=== PATIENT | male | born 1940 | race Caucasian/White ===

== ENCOUNTER → 2017-05-21 | Outpatient (CLI) | payer MEDICARE, OTHER ==
[~2017-05-21] MED LIST: AMLODIPINE PO; APIDRA SOL100 UNIT/1 SUBQ; ASPIRIN81 M2 PO; ATACAND16 MG PO; ATACAND32 MG PO; ATORVASTATIN CA40 MG PO; AUGMENTIN 875-1 EACH PO; HYDROCHLOROTHIA25 M2 PO; HYDROCHLOROTHIA50 MG PO; HYDROCODONE-APA1 TA1 PO; IMDUR 30 MG TAB30 M1 PO; IMODIUM MULTI-1 EACH PO; IPRAT-ALBUT 0.5-3 ML INH; LANTUS SUBQ; LANTUS100 UNIT/M SUBQ; LEVOTHYROXIN0.075 MG PO; LEVOTHYROXIN0.112 M1 PO; LEVOTHYROXINE 0.1 MG PO; LOPRESSOR 12.12.5 MG PO; MIDAMOR 5MG TABL5 M1 PO; MOBIC15 MG PO; NITROGLYCERIN0.4 MG SUBLING; NORVASC5 MG PO; NOVOLOG100 UNIT/1 SUBQ; PLAVIX 75 MG TA75 M1 PO; POTASSIUM20 PO; TOPROL XL25 MG PO; TOUJEO SOL300 UNIT/1 SUBQ; VITAMIN D1000 UNI2 PO; VITAMIN E400 UNIT PO; XANAX 0.25 MG0.25 MG PO; XANAX 0.5 MG0.5 MG PO
[2017-05-21 07:49] LABS: HEMATOCRIT 49.6 % (42.0-52.0); HEMOGLOBIN 16.9 gm/dL (14.0-18.0); MCHC 34.1 g/dL (28.0-37.0); MCV 90.9 fL (80.0-100.0); MPV 9.3 fl. (7.2-11.1); RBC 5.45 mil/uL (4.50-6.00); RDW-CV 14.4 % (10.5-14.5); WBC 7.6 thou/uL (4.0-11.0)
[2017-05-21 08:05] LABS: ALBUMIN 3.1 g/dL (3.4-5.0); ALKALINE PHOSPHATASE 83 U/L (46-116); ANION GAP 9 mmol/L (7-16); BUN 36 mg/dL (7-18); CALCIUM 8.9 mg/dL (8.5-10.1); CHLORIDE 110 mmol/L (98-107); CHOLESTEROL 210 mg/dL (<200); CO2 27 mmol/L (21-32); GLUCOSE 67 mg/dL (70-99); HDL CHOLESTEROL 46 mg/dL (>40); LDL CHOLESTEROL 135 mg/dL (<100); POTASSIUM 3.6 mmol/L (3.5-5.1); SERUM ASSESSMENT Clear; SGOT 19 U/L (15-37); SGPT 20 U/L (30-65); SODIUM 146 mmol/L (136-145); TC:HDL 4.6 Ratio (Not establshd); TOTAL BILIRUBIN 0.7 mg/dL (<0.1-1.0); TOTAL PROTEIN 6.8 g/dL (6.4-8.2); TRIGLYCERIDE 146 mg/dL (<150); VLDL 29 mg/dL (<40)
== END ==
LOC: M.LAB 07:30
DX: I12.9 Hypertensive chronic kidney disease with stage 1 through stage 4 chronic kidney disease, or unspecified chronic kidney disease (principal); E78.5 Hyperlipidemia, unspecified; E03.9 Hypothyroidism, unspecified; I25.119 Atherosclerotic heart disease of native coronary artery with unspecified angina pectoris; I73.9 Peripheral vascular disease, unspecified; N18.3 Chronic kidney disease, stage 3 (moderate); E11.65 Type 2 diabetes mellitus with hyperglycemia; I25.2 Old myocardial infarction; Z90.49 Acquired absence of other specified parts of digestive tract; Z85.048 Personal history of other malignant neoplasm of rectum, rectosigmoid junction, and anus; Z98.890 Other specified postprocedural states

== ENCOUNTER → 2017-12-24 | Outpatient (CLI) | payer MEDICARE, OTHER ==
[2017-12-24 11:58] LABS: HEMATOCRIT 44.3 % (42.0-52.0); MCH 30.8 pg (26.0-34.0); MCV 90.7 fL (80.0-100.0); MPV 9.2 fl. (7.2-11.1); RBC 4.88 mil/uL (4.50-6.00); RDW-CV 13.6 % (10.5-14.5)
[2017-12-24 12:15] LABS: ALBUMIN 2.3 g/dL (3.4-5.0); ALKALINE PHOSPHATASE 78 U/L (46-116); ANION GAP 9 mmol/L (7-16); BUN 36 mg/dL (7-18); CALCIUM 7.9 mg/dL (8.5-10.1); CHLORIDE 104 mmol/L (98-107); CHOLESTEROL 174 mg/dL (<200); CO2 28 mmol/L (21-32); CREATININE 2.4 mg/dL (0.6-1.3); GLUCOSE 309 mg/dL (70-99); HDL CHOLESTEROL 37 mg/dL (>40); LDL CHOLESTEROL 88 mg/dL (<100); POTASSIUM 3.3 mmol/L (3.5-5.1); SERUM ASSESSMENT Clear; SGOT 16 U/L (15-37); SGPT 12 U/L (30-65); SODIUM 141 mmol/L (136-145); TC:HDL 4.7 Ratio (Not establshd); TOTAL BILIRUBIN 0.4 mg/dL (<0.1-1.0); TOTAL PROTEIN 5.9 g/dL (6.4-8.2); TRIGLYCERIDE 247 mg/dL (<150); VLDL 49 mg/dL (<40)
[2017-12-25 04:06] LABS: GLYCOHEMOGLOBIN (HGB A1C) 8.7 % (4.8-5.6)
== END ==
LOC: M.LAB 11:35
PROVIDERS: Nurse Practitioner Family
DX: I10 Essential (primary) hypertension (principal); E03.9 Hypothyroidism, unspecified; E11.8 Type 2 diabetes mellitus with unspecified complications; E78.5 Hyperlipidemia, unspecified

== ENCOUNTER 2018-02-02 02:30 | Inpatient (IN) | payer MEDICARE, OTHER ==
[2018-02-02] VITALS (7 sets, daily range): BP systolic 127–227; BP diastolic 76–97
[~2018-02-02] VITALS: Ht 152.4 cm; Wt 82.8 kg
[~2018-02-02 02:30] MED LIST changes: -AUGMENTIN 875-1 EACH PO; -IPRAT-ALBUT 0.5-3 ML INH; -POTASSIUM20 PO
[2018-02-02 03:18] LABS: ABSOLUTE BASOPHILS 0.1 thou/uL (0.0-0.2); ABSOLUTE EOSINOPHILS 0.1 thou/uL (0.0-0.7); ABSOLUTE LYMPHOCYTES 2.2 thou/uL (0.8-5.3); ABSOLUTE MONOCYTES 0.7 thou/uL (0.0-1.2); ABSOLUTE NEUTROPHILS 4.7 thou/uL (1.6-8.1); BASOPHILS 0.8 %; EOSINOPHILS 1.5 %; HEMATOCRIT 45.5 % (42.0-52.0); HEMOGLOBIN 15.3 gm/dL (14.0-18.0); LYMPHOCYTES 28.3 %; MCH 30.6 pg (26.0-34.0); MCHC 33.7 g/dL (28.0-37.0); MCV 90.8 fL (80.0-100.0); MPV 9.8 fl. (7.2-11.1); NUCLEATED RBCS 0 /100WBC; PLATELET COUNT* 163 thou/uL (150-400); POLYS 60.4 %; RBC 5.01 mil/uL (4.50-6.00); RDW-CV 13.4 % (10.5-14.5); WBC 7.8 thou/uL (4.0-11.0)
[2018-02-02 03:25] LABS: CALCIUM 8.8 mg/dL (8.5-10.1); CREATININE 2.3 mg/dL (0.6-1.3); POTASSIUM 3.9 mmol/L (3.5-5.1)
[2018-02-02 03:26] LABS: APTT 27.2 Seconds (25.0-31.3); INR 1.1; PROTIME 10.9 Seconds (9.20-11.50)
[2018-02-02 03:35] LABS: ALBUMIN 2.6 g/dL (3.4-5.0); MAGNESIUM 1.7 mg/dL (1.8-2.4); TOTAL BILIRUBIN 0.6 mg/dL (<0.1-1.0); TOTAL PROTEIN 6.2 g/dL (6.4-8.2); TROPONIN-I LEVEL 0.18 ng/mL (<0.06)
--- NOTE | 2018-02-02 17:53 | 2DMMODE ---
[place] [address] 2 D/M-MODE ECHOCARDIOGRAM Name: PATSY WALLACE Room: [address] IN [facility]#: [id number] Admission: 02/02/18 Attend Phys: Savannah Alvarez, Discharge: Date of : 36 Date of Service: 02/02/18 1752 Report #: [id number] THIS REPORT FOR: //name// APPROVED REPORT Study performed: 02/02/2018 14:54:41 EXAM: Comprehensive 2D, Doppler, and color-flow Echocardiogram Patient Location: In-Patient Room #: [facility] Status: routine BSA: 1.92 HR: 103 bpm BP: 163/77 mmHg Rhythm: NSR Other Information Study Quality: Good Indications CAD Chest Pain 2D Dimensions IVSd: 13.77 (7-11mm) LVOT Diam: 20.47 (18-24mm) LVDd: 53.92 mm PWd: 9.42 (7-11mm) Ascending Ao: 32.64 (22-36mm) LVDs: 47.06 (25-40mm) Aortic Root: 33.64 mm Volumes Left Atrial Volume (Systole) LA ESV Index: 39.80 mL/m2 Aortic Valve AoV Peak Tl.: 1.41 m/s AO Peak Gr.: 7.99 mmHg LVOT Max P.75 mmHg AO Mean Gr.: 4.96 mmHg LVOT Mean P.93 mmHg LVOT Max V: 0.97 m/s AO V2 VTI: 25.40 cm LVOT Mean V: 0.64 m/s DANIEL (VTI): 2.31 cm2 LVOT V1 VTI: 17.82 cm Mitral Valve MV Decel. Time: 110.49 ms MV PHT: 32.04 [place] [address] 2 D/M-MODE ECHOCARDIOGRAM Name: PATSY WALLACE Room: [address] IN [facility]#: [id number] Admission: 02/02/18 Attend Phys: Savannah Alvarez, Discharge: Date of : 36 Date of Service: 02/02/18 1752 Report #: [id number] MVA (PHT): 6.87 cm2 Pulmonary Valve PV Peak Tl.: 1.28 m/s PV Peak Gr.: 6.59 mmHg Left Ventricle The left ventricle is normal size. Regional wall motion abnormalities are noted with distal septal and apical hypokinesis. There is normal left ventricular wall thickness. Left ventricular systolic function is mildly decreased. LVEF is 45%. The left ventricular diastolic function is normal. Right Ventricle The right ventricle is normal size. The right ventricular systolic function is normal. Atria Left atrium is mildly dilated. The right atrium size is normal. Aortic Valve Mild aortic valve sclerosis. No aortic regurgitation is present. There is no aortic valvular stenosis. Mitral Valve Mild mitral annular calcification. Mild mitral regurgitation. No evidence of mitral valve stenosis. Tricuspid Valve The tricuspid valve is normal in structure. Unable to assess PA pressure. Trace tricuspid regurgitation. Pulmonic Valve The pulmonary valve is normal in structure. There is no pulmonic valvular regurgitation. Great Vessels The aortic root is normal in size. IVC is normal in size and collapses >50% with inspiration. Pericardium There is no pericardial effusion. <Conclusion> The left ventricle is normal size. Left ventricular systolic [place] [address] 2 D/M-MODE ECHOCARDIOGRAM Name: PATSY WALLACE Room: [address] IN [facility].#: [id number] Admission: 02/02/18 Attend Phys: Savannah Alvarez, Discharge: Date of : 36 Date of Service: 02/02/18 1752 Report #: [id number] LVEF is 45%. The right ventricle is normal size. Left atrium is mildly dilated. Mild aortic valve sclerosis. No aortic regurgitation is present. There is no aortic valvular stenosis. Mild mitral annular calcification. Mild mitral regurgitation. No evidence of mitral valve stenosis. The tricuspid valve is normal in structure. IVC is normal in size and collapses >50% with inspiration. There is no pericardial effusion. Regional wall motion abnormalities are noted with distal septal and apical hypokinesis. <ELECTRONICALLY SIGNED> By: Ross Woods MD, FACC 02/02/181751 51 51 Ross Woods MD, FACC /INF
[2018-02-03] VITALS: BP 167/65
[2018-02-03 05:07] VITALS: BP 149/61
[2018-02-03 05:41] LABS: HEMATOCRIT 42.9 % (42.0-52.0); HEMOGLOBIN 14.5 gm/dL (14.0-18.0); MCH 30.8 pg (26.0-34.0); MCHC 33.8 g/dL (28.0-37.0); MCV 91.4 fL (80.0-100.0); MPV 10.3 fl. (7.2-11.1); NUCLEATED RBCS 0 /100WBC; PLATELET COUNT* 159 thou/uL (150-400); RDW-CV 13.6 % (10.5-14.5); WBC 13.2 thou/uL (4.0-11.0)
[2018-02-03 05:46] LABS: CALCIUM 9.2 mg/dL (8.5-10.1); CREATININE 2.8 mg/dL (0.6-1.3); POTASSIUM 4.2 mmol/L (3.5-5.1)
[2018-02-03 06:40] LABS: ABSOLUTE LYMPHOCYTES 0.9 thou/uL (0.8-5.3); ABSOLUTE MONOCYTES 0.3 thou/uL (0.0-1.2); ANISOCYTOSIS 1+; PLATELET ESTIMATE ADEQUATE; POIKILOCYTOSIS 1+
--- NOTE | 2018-02-03 07:37 | CON ---
[facility] [address] [place] [address] CONSULTATION Name: PATSY WALLACE Room: [address] IN .R.#: [id number] Admission: 02/02/18 Attend Phys: Savannah Alvarez MD Discharge: Date of : 36 Report #: [id number] THIS REPORT FOR: //name// CC: Savannah Garsia DATE OF SERVICE: 02/02/2018 REASON FOR CONSULTATION: Hemoptysis. DISCUSSION: The patient is a pleasant 77-year-old man who has a history of coronary artery disease, peripheral vascular disease. He notes that yesterday evening, he had fallen asleep, had a sensation of something in his throat/mouth, coughed it out and it was bright red blood. Prior to this, he denied having much in the way of any cough. He is chronically short of breath, can only walk short distances. He has intermittently had some chest pain as well. He was seen in the Emergency Department yesterday. A chest x-ray was done, which was fairly unremarkable. He did have a CT scan done of his chest. No contrast was used. Emphysematous changes were noted. No masses. There is evidence of old calcified granuloma disease. Does not appear to have any significant adenopathy. Here in the hospital, he has remained on room air, low grade temperature to 99.1. Earlier this morning, did have the onset to have significant chest discomfort. He notes he felt like he had a heavy weight sitting on his chest. It has improved at the time I was seeing him. He did have some additional nonmassive hemoptysis this morning as well. He is just a fair historian. His is able to help. He has a known history of coronary artery disease. He has had stents placed in the past. He states he does continue to follow up regularly with a relationship advisor; however, he and his cannot tell me who they are. He states he has chronic irregular heartbeat. He is on Plavix and aspirin chronically and has been on this for the last several years. He states he was told that he had issues with the valve. Also that his heart was not pumping effectively. He has not had any vomiting. He has had a change in his appetite. He has lost substantial amount of weight since 03/2017. He is a remote smoker, quitting back in 1989. He notes when he went into the [facility] years ago, he had additional evaluation done. Subsequent was told that he has a scar on his lungs. Question of tuberculosis was raised at that time. However, he is not aware of any other type of testing that has ever been done in the interim. No family members had TB. He has no history of thromboembolic disease. He does have a history of skin cancer removed from his left ear. He has a history of colon cancer. He had his initial resection with colostomy, which was done in 2005. He had radiation and chemotherapy at that time as well. In 2014, he did have additional colon resection for another adenocarcinoma. He also has a history of coronary artery disease. He has had stents placed. He is [address] [place] [address] CONSULTATION Name: PATSY WALLACE Room: [address] IN [facility].#: [id number] Admission: 02/02/18 Attend Phys: Savannah Alvarez MD Discharge: Date of : 38 Report #: [id number] chronically on Plavix and aspirin. PAST MEDICAL HISTORY: As noted above in regards to cardiac history and his colon cancer. He has also had a left ear skin cancer removed. He has had some type of nasal surgery, which stopped have his snoring. In 2006, he also had a right thyroid mass that was removed. He has also had a mass in the superior mediastinum, which was resected and was found to be benign disease. He has had no recent colonoscopies. He denies having any EGDs. SOCIAL HISTORY: He is . Quit smoking in 1989. He had smoked up to 2 packs of cigarettes per day in the past. 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 Also, over 20 years in the [employer]. He had been in multiple parts of the world. Had had also had malaria and typhoid fever. FAMILY HISTORY: Positive for peripheral vascular disease. REVIEW OF SYSTEMS: ROS was done. Note positives above. He is somewhat hard of hearing. He has had close to 50-pound weight loss. He gets short of breath with minimal exertion. Typically does not have much in the way of cough or wheezing at home. Intermittent chest pain as noted. He denies difficulty swallowing to me and on the other hand will note that he does not swallow well. His appetite has been poor. He denies any recent vomiting. He has not noted any blood in his stools or black stools. He still does have his colostomy. He has a known hernia abdominal wall. Denies any recent falls. PHYSICAL EXAMINATION: GENERAL APPEARANCE: A man who looks stated age. His is at the bedside. He is conversant. He does have some blood-stained tissues in the container at the bedside. No blood is noted in his mouth. HEENT: Sclerae nonicteric. NECK: Negative for adenopathy. No JVD is noted. HEART: Regular with periods of irregularity. No S3 is heard. There is a grade 1/6 systolic murmur. LUNGS: Sounds are clear. There is no wheezing or crackles heard. No chest wall abnormalities are noted. ABDOMEN: Soft. He does have a small hernia noted. Colostomy bag is noted as well. EXTREMITIES: Lower extremities negative for edema. Skin is warm and dry. He has no clubbing. NEUROLOGIC: Alert and oriented x 3. LABORATORY AND X-RAY FINDINGS: BUN is 41, creatinine of 2.3, potassium 3.9 with bicarbonate of 20. Troponin early this morning was 0.18, down to 0.08 this morning. Albumin 2.6, total protein 6.2. ProBNP 2358. White blood cell count 7800, hemoglobin 15.3, hematocrit of 45.5. Platelets are normal. INR is 1.1. Blood cultures have been sent. [place] [address] CONSULTATION Name: PATSY WALLACE Room: [address]#: [id number] Admission: 02/02/18 Attend Phys: Savannah Alvarez MD Discharge: Date of : 38 Report #: [id number] chest shows some emphysematous changes. No definite masses. Larger airways do appear open and patent. Last echocardiogram done at this facility was in 2014. At that time, his EF was 50-55%. RV was normal. He had mild mitral regurgitation. He had a stress test done in 2016. At that time, EF was 42%. IMPRESSION: 1. Non-massive hemoptysis. It is actually not clear where the source of the bleeding is from. His description is little variable. Certainly may have expectorated it. He also describes of having a sense of secretions or mucus in the back of his throat and when he spit it out it was bloody. It could be upper airway source or even GI. Has had some dysphagia. There are no worrisome lesions noted on the CT chest. By history, he does not have a significant bronchitis or pneumonia. 2. History of colon cancer. Had resection with colostomy placement and chemoradiation in 2004. Additional surgery for colon cancer in 2014. 3. History of coronary artery disease, known ischemic cardiomyopathy. 4. Chronic kidney disease. 5. History of skin cancer, details not clear. 6. History of peripheral vascular disease. RECOMMENDATIONS: 1. Discussed with Dr. Quigley. He is already requested GI to evaluate. 2. If safe, would keep off the Plavix and aspirin at this time. 3. Agree with empiric antibiotics and steroids. We will decrease the dose of the steroids given his diabetes and elevated blood sugars. <ELECTRONICALLY SIGNED> By: Hazel Terry MD 02/03/18 0737 1129 [id number] Terry MD /nt
[2018-02-03 08:00] VITALS: BP 174/77
[2018-02-03 12:31] VITALS: BP 149/54
[2018-02-03 15:41] VITALS: BP 136/70
--- NOTE | 2018-02-03 16:59 | EKG ---
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 : 1940 Requested By: Raymond Gomes Order Number: [id number] MD: Ross Woods Measurements Intervals [place] Rate: 76 P: 34 [place]: 186 QRS: 28 QRSD: 104 T: 261 QT: 415 QTc: 467 Interpretive Statements Sinus arrhythmia Probable LVH with secondary repol abnrm Inferior infarct, age indeterminate Baseline wander in lead(s) V2 Compared to ECG 05/17/2015 09:41:52 Myocardial infarct finding now present T-wave abnormality no longer present Electronically Signed On 02-03-2018 16:59:04 CDT by Ross Woods [email or web address] <ELECTRONICALLY SIGNED> By: Ross Woods MD, FACC 02/03/18 1659 0243 0243 Ross Woods MD, FACC /EPI
--- NOTE | 2018-02-03 17:04 | EKG ---
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[facility] 1940 Requested By: Neymar Quigley Order Number: [id number] Edilberto MD: Ross Woods Measurements Intervals [place] Rate: 99 P: [place]: QRS: 3 QRSD: 103 T: 217 QT: 359 QTc: 461 Interpretive Statements Atrial fibrillation Ventricular premature complex Inferior infarct, age indeterminate Repol abnrm, consider ischemia Compared to ECG 05/17/2015 09:41:52 Ventricular premature complex(es) now present Myocardial infarct finding now present Early repolarization now present Possible ischemia now present Sinus rhythm no longer present Electronically Signed On 02-03-2018 17:03:48 CDT by Ross Woods [email or web address] <ELECTRONICALLY SIGNED> By: Ross Woods MD, FACC 02/03/18 1703 1044 1044 Ross Woods MD, FACC /EPI
--- NOTE | 2018-02-03 17:07 | EKG ---
[place] [address] ELECTROCARDIOGRAM REPORT Name: PATSY WALLACE Room: [address] ADM IN M.R.#: [id number] Admission: 02/02/18 Attend Phys: Savannah Alvarez MD Discharge: Date of : 38 Report #: [id number] THIS REPORT FOR: //name// 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 : 1940 Requested By: Ross Woods Order Number: [id number] Edilberto MD: Ross Woods Measurements Intervals [place] Rate: 111 P: 79 CT: 168 QRS: 11 QRSD: 110 T: 261 QT: 350 QTc: 476 Interpretive Statements Sinus tachycardia Incomplete left bundle branch block Inferior infarct, age indeterminate Compared to ECG 05/17/2015 09:41:52 Left bundle-branch block now present Myocardial infarct finding now present Sinus rate has increased Sinus arrhythmia no longer present Electronically Signed On 02-03-2018 17:07:33 CDT by Ross Woods [email or web address] <ELECTRONICALLY SIGNED> By: Ross Woods MD, FAC 02/03/18 1707 1346 1346 Ross Woods MD, [facility] /EPI
[2018-02-03 20:09] VITALS: BP 166/77
[2018-02-04] VITALS (7 sets, daily range): BP systolic 133–135; BP diastolic 57–75
[2018-02-04 05:13] LABS: ABSOLUTE LYMPHOCYTES 1.5 thou/uL (0.8-5.3); ABSOLUTE MONOCYTES 0.8 thou/uL (0.0-1.2); ABSOLUTE NEUTROPHILS 8.4 thou/uL (1.6-8.1); BASOPHILS 0.1 %; HEMATOCRIT 40.1 % (42.0-52.0); HEMOGLOBIN 13.5 gm/dL (14.0-18.0); LYMPHOCYTES 13.5 %; MCH 30.9 pg (26.0-34.0); MCHC 33.7 g/dL (28.0-37.0); MCV 91.7 fL (80.0-100.0); MONOCYTES 7.9 %; MPV 10.2 fl. (7.2-11.1); NUCLEATED RBCS 0 /100WBC; PLATELET COUNT* 130 thou/uL (150-400); POLYS 78.5 %; RBC 4.37 mil/uL (4.50-6.00); RDW-CV 13.8 % (10.5-14.5); WBC 10.7 thou/uL (4.0-11.0)
[2018-02-04 06:00] LABS: ALBUMIN 2.4 g/dL (3.4-5.0); CALCIUM 8.6 mg/dL (8.5-10.1); CREATININE 2.9 mg/dL (0.6-1.3); TOTAL BILIRUBIN 0.3 mg/dL (<0.1-1.0); TOTAL PROTEIN 5.1 g/dL (6.4-8.2)
--- NOTE | 2018-02-04 11:04 | EKG ---
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: : 1940 Requested By: Jair Meza Order Number: [id number] Reading MD: Ross Woods Measurements Intervals [place] Rate: 86 P: 23 [place]: 168 QRS: 6 QRSD: 104 T: 227 QT: 361 QTc: 432 Interpretive Statements Sinus rhythm Ventricular premature complex Inferior infarct, age indeterminat Baseline wander in lead(s) V2 Compared to ECG 02/02/2018 13:46:46 Ventricular premature complex(es) now present Sinus tachycardia no longer present Left bundle-branch block no longer present Myocardial infarct finding still present Electronically Signed On 02-04-2018 11:04:15 CDT by Ross Woods [email or web address] <ELECTRONICALLY SIGNED> By: Ross Woods MD, FACC 02/04/18 1104 41 2242 Ross Woods MD, FACC /EPI
[2018-02-04] MEDS ORDERED: AUGMENTIN 875-1 EACH PO (11:40)
[2018-02-04] MEDS ORDERED: IPRAT-ALBUT 0.5-3 ML INH (11:43)
--- NOTE | 2018-02-25 12:52 | CON ---
[facility] [address] [place] [address] CONSULTATION Name: PATSY WALLACE Room: [address] IN M.R.#: [id number] Admission: 02/02/18 Attend Phys: Savannah Alvarez MD Discharge: 02/04/18 Date of : 36 Report #: [id number] THIS REPORT FOR: //name// CC: Savannah Garsia DATE OF SERVICE: 02/02/2018 HISTORY OF PRESENT ILLNESS: This is a pleasant 77-year-old gentleman, with past medical history significant for coronary artery disease, colon cancer, status post resection, type 2 diabetes, rectal cancer, who is presenting with hemoptysis. The patient reports he was in his usual state of health yesterday evening when he coughed up. He assumed this was phlegm, but when he noticed, it was a large blood clot. The patient then asked his to bring him to the ER. The patient reports he is having some chest pain and difficulty breathing. He denies any significant abdominal pain, nausea, vomiting or hematemesis. The patient also denies any significant change in his bowel habits. His colostomy appears healthy without any significant changes in the recent past. The patient reports losing about 30 pounds in the last 6 months. PAST MEDICAL HISTORY: The patient has a history of COPD, coronary artery disease. He had tuberculosis as a child. He reports having hemorrhoidectomy in the 1970s. He had rectal cancer and colon cancer for which he underwent surgery. His surgery for colon cancer was in 2014. Surgery for rectal cancer was in 2005. The patient has not had a colonoscopy since then and he has never had anything before. SOCIAL HISTORY: The patient quit smoking a few years back, but prior to this, has a [id number] smoking history. He denies any significant alcohol or recreational drug use. FAMILY HISTORY: There is no family history of colorectal cancer. REVIEW OF SYSTEMS: Comprehensive 10-point review of systems is negative except for hemoptysis, chest pain, shortness of breath and weight loss. PHYSICAL EXAMINATION: VITAL SIGNS: Temperature is 36.9, pulse rate 70, respirations 19, blood pressure 169/80, pulse ox 100%. GENERAL: The patient is alert, awake, oriented x 3. HEENT: Pupils are equal, round, reactive to light and accommodation. Mucous membranes are moist. There is no congestion. LUNGS: Clear to auscultation bilaterally with mild expiratory wheezing. There is no supraclavicular lymphadenopathy. CARDIOVASCULAR: Rate and rhythm regular. S1, S2 present. ABDOMEN: Soft. There is no distention, no guarding, [place] [address] CONSULTATION Name: PATSY WALLACE Room: [address] IN [facility]#: [id number] Admission: 02/02/18 Attend Phys: Savannah Alvarez MD Discharge: 02/04/18 Date of : 38 Report #: [id number], appears healthy. There is no blood in the colostomy bag, and there is no peristomal tenderness. EXTREMITIES: Warm and well perfused. There is no focal neurological deficit. SKIN: Warm and dry. LABORATORY DATA: Hemoglobin 15.3, hematocrit 45.5, WBC count 7.8, platelet count 163. Sodium 141, potassium 3.9, chloride 109, bicarbonate 23, BUN 41, creatinine 2.3, blood glucose 533. Bilirubin 0.6, AST 12, ALT 15, alkaline phosphatase 73. Troponin elevated at 2.1. IMAGING: Chest CT, severe extensive atherosclerotic calcification of the coronary arteries and aorta, renal artery stents and enterostenosis may be present. Endostenosis of renal artery stents may be represent. Calcification within the calyx of the right kidney consistent with renal calculus. No evidence of obstruction. Extensive centrilobular emphysematous changes, benign scarring in the right upper limb, most likely represents chronic scarring. No evidence of pneumonia or pneumothorax. No alveolar infiltrate evident. Calcified mediastinal lymph nodes measuring up to 12 mm, likely to represent chronic granulomas. ASSESSMENT AND PLAN: This is a pleasant 77-year-old male, with past medical history of severe coronary artery disease, chronic obstructive pulmonary disease, colon and rectal cancer, who is presenting with chest pain, shortness of breath and hemoptysis. The gastroenterology service was consulted to evaluate 30 pound weight loss. Since the patient never had a repeat colonoscopy following his surgery for his colon cancer in 2014, I offered him a repeat colonoscopy, but he refused. The patient also refused an upper gastrointestinal endoscopy. He believes that because of his extensive history of coronary artery disease, he will be at high risk for adverse cardiovascular events with any sedation related to endoscopy. I will get a CT abdomen and pelvis with IV contrast to evaluate for any potential malignant lesions. Further recommendations will be based on this testing. <ELECTRONICALLY SIGNED> By: Giancarlo Rendon MD 02/25/18 1252 1741 0524Giancarlo Rendon MD /nt
== END 2018-02-04 13:30 | disposition home or self-care (01) | DRG 682 ==
LOC: M.ERS 02:30 → M.2W 04:56 → M.TBA-ER 04:56 → M.2W 05:35
PROVIDERS: Family Medicine; Internal Medicine; ADMIT Internal Medicine
DX: N17.9 Acute kidney failure, unspecified (principal); R65.11 Systemic inflammatory response syndrome (SIRS) of non-infectious origin with acute organ dysfunction; E11.00 Type 2 diabetes mellitus with hyperosmolarity without nonketotic hyperglycemic-hyperosmolar coma (NKHHC); I21.4 Non-ST elevation (NSTEMI) myocardial infarction; J44.1 Chronic obstructive pulmonary disease with (acute) exacerbation; R04.2 Hemoptysis; E46 Unspecified protein-calorie malnutrition; E11.22 Type 2 diabetes mellitus with diabetic chronic kidney disease; R13.10 Dysphagia, unspecified; E11.65 Type 2 diabetes mellitus with hyperglycemia; T38.0X5A Adverse effect of glucocorticoids and synthetic analogues, initial encounter; I25.5 Ischemic cardiomyopathy; J40 Bronchitis, not specified as acute or chronic; I25.10 Atherosclerotic heart disease of native coronary artery without angina pectoris; N18.9 Chronic kidney disease, unspecified; E11.51 Type 2 diabetes mellitus with diabetic peripheral angiopathy without gangrene; Z68.35 Body mass index [BMI] 35.0-35.9, adult; I25.2 Old myocardial infarction; Z95.5 Presence of coronary angioplasty implant and graft; Z87.891 Personal history of nicotine dependence; Z93.3 Colostomy status; Z85.038 Personal history of other malignant neoplasm of large intestine; Z85.048 Personal history of other malignant neoplasm of rectum, rectosigmoid junction, and anus

== ENCOUNTER 2018-02-25 15:03 | Emergency (ER) | payer MEDICARE, OTHER ==
[~2018-02-25] VITALS: Ht 180.3 cm; Wt 80.3 kg
[~2018-02-25 15:03] MED LIST changes: +AUGMENTIN 875-1 EACH PO; +IPRAT-ALBUT 0.5-3 ML INH
[2018-02-25] MEDS ORDERED: POTASSIUM20 PO (15:23)
[2018-02-25 16:13] LABS: ABSOLUTE BASOPHILS 0.1 thou/uL (0.0-0.2); ABSOLUTE EOSINOPHILS 0.1 thou/uL (0.0-0.7); ABSOLUTE MONOCYTES 0.6 thou/uL (0.0-1.2); ABSOLUTE NEUTROPHILS 7.7 thou/uL (1.6-8.1); BASOPHILS 1.1 %; EOSINOPHILS 1.1 %; HEMATOCRIT 47.8 % (42.0-52.0); HEMOGLOBIN 16.3 gm/dL (14.0-18.0); LYMPHOCYTES 10.9 %; MCH 30.9 pg (26.0-34.0); MCHC 34.1 g/dL (28.0-37.0); MCV 90.5 fL (80.0-100.0); MONOCYTES 6.4 %; MPV 9.8 fl. (7.2-11.1); NUCLEATED RBCS 0 /100WBC; PLATELET COUNT* 183 thou/uL (150-400); POLYS 80.5 %; RBC 5.29 mil/uL (4.50-6.00); RDW-CV 13.8 % (10.5-14.5); WBC 9.6 thou/uL (4.0-11.0)
[2018-02-25 16:18] LABS: PROTIME 10.6 Seconds (9.20-11.50)
--- NOTE | 2018-02-25 16:45 | EKG ---
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: [place] : 1940 Requested By: Shira Carlson Order Number: [id number] MD: Alexander Dickens Measurements Intervals [place] Rate: 85 P: [place]: QRS: 9 QRSD: 103 T: 200 QT: 396 QTc: 471 Interpretive Statements sinus rhythm with pac's Abnormal inferior Q waves Probable anterior infarct, age indeterminate Compared to ECG 02/03/2018 22:42:27 Ventricular premature complex(es) no longer present Myocardial infarct finding still present Electronically Signed On 02-25-2018 16:45:11 CNC OPERATOR MACHINIST by Alexander Dickens [email or web address] <ELECTRONICALLY SIGNED> By: Alexander Dickens MD, [facility] 02/25/18 6649 1515 1515 Alexander Dickens MD, [facility] /EPI
[2018-02-25 16:54] LABS: ANION GAP 10 mmol/L (7-16); BUN 41 mg/dL (7-18); CALCIUM 9.3 mg/dL (8.5-10.1); CHLORIDE 106 mmol/L (98-107); CO2 26 mmol/L (21-32); CREATININE 2.9 mg/dL (0.6-1.3); GLUCOSE 325 mg/dL (70-99); POTASSIUM 3.7 mmol/L (3.5-5.1); SODIUM 142 mmol/L (136-145)
[2018-02-25 17:01] LABS: ALBUMIN 2.9 g/dL (3.4-5.0); ALKALINE PHOSPHATASE 96 U/L (46-116); LIPASE 298 U/L (73-393); SGOT 11 U/L (15-37); SGPT 14 U/L (30-65); TOTAL BILIRUBIN 0.7 mg/dL (<0.1-1.0); TOTAL PROTEIN 6.7 g/dL (6.4-8.2); TROPONIN-I LEVEL <0.06 ng/mL (<0.06)
[2018-02-25 17:11] VITALS: BP 184/67
== END 2018-02-25 17:12 | disposition left against medical advice (07) ==
LOC: M.ERS 15:03
PROVIDERS: Nurse Practitioner Family
DX: R53.1 Weakness (principal); R42 Dizziness and giddiness; R10.33 Periumbilical pain; N28.9 Disorder of kidney and ureter, unspecified; E11.9 Type 2 diabetes mellitus without complications; Z87.891 Personal history of nicotine dependence; Z79.4 Long term (current) use of insulin